=== PATIENT | female | born 1980 | race Two or more races ===

== ENCOUNTER → 2017-07-18 | Outpatient (REF) | payer OTHER ==
[~2017-07-18] MED LIST: ACET50TA PO; COLA100C5 PO; IBUP-1114 PO; NUPE1OIN2 TOP; PRENTAB9 PO
== END ==
LOC: M SFHCLERA 10:30
PROVIDERS: ATTEND Nurse Practitioner Family
DX: J02.9 Acute pharyngitis, unspecified (principal)

== ENCOUNTER → 2019-02-14 | Outpatient (REF) | payer OTHER ==
[~2019-02-14] MED LIST changes: -ACET50TA PO; +MAPA500T2 PO
== END ==
LOC: M LAB REF 16:32
PROVIDERS: ATTEND Physician Assistant
DX: R30.0 Dysuria (principal)

== ENCOUNTER → 2019-02-14 | Outpatient (REF) | payer OTHER ==
[2019-02-14 21:52] LABS: CHLAMYDIA DNA AMPLIFICATION NEGATIVE (NEGATIVE); GC DNA AMPLIFICATION NEGATIVE (NEGATIVE)
== END ==
LOC: M LAB REF 16:31
PROVIDERS: ATTEND Physician Assistant
DX: R30.0 Dysuria (principal)